=== PATIENT | male | born 1935 | race Caucasian/White ===

== ENCOUNTER → 2024-02-17 10:14 | Outpatient (REF) | payer MEDICARE, SELFPAY ==
[2024-02-17 11:42] LABS: % Basophils 0.5 % (0-2); % Eosinophils 4.8 % (0-6); % Immature Granulocytes 0.7 % (0-0.5); % Lymphocytes 14.7 % (20.5-51.1); % Monocytes 16.6 % (1.7-9.3); % Neutrophils 62.7 % (42.2-75.2); Absolute Eosinophils 0.2 10^3/uL (0-0.7); Absolute Lymphocytes 0.6 10^3/uL (1.2-3.4); Absolute Monocytes 0.7 10^3/uL (0.1-0.6); Absolute Neutrophils 2.7 10^3/uL (1.4-6.5); Hematocrit 37.1 % (39.0-52.0); Hemoglobin 12.7 g/dL (13.0-18.0); Mean Corp Hgb Conc. 34.2 g/dL (33.0-37.0); Mean Corpuscular Hgb 32.6 pg (27.0-31.0); Mean Corpuscular Volume 95.4 fL (80.0-94.0); Mean Platelet Volume 10.5 fL (7.4-10.4); Nucleated Red Blood Cells % 0 % (-); Platelet Count 297 10^3/uL (130-400); Red Blood Cell Count 3.89 10^6/uL (4.70-6.10); Red Cell Dist. Width 13.4 % (11.5-14.5); White Blood Cell Count 4.3 10^3/uL (4.8-10.8)
[2024-02-17 11:44] LABS: ALT (SGPT) 16 U/L (0-50); AST (SGOT) 22 U/L (17-59); Albumin 3.6 g/dl (3.5-5.0); Alkaline Phosphatase 72 U/L (38-126); Blood Urea Nitrogen 9 mg/dl (9-20); Carbon Dioxide 28 mmol/L (22-30); Chloride 97 mmol/L (98-107); Glucose 92 mg/dl (70-99); Potassium 4.7 mmol/L (3.5-5.1); Sodium 131 mmol/L (135-145); Total Bilirubin 0.8 mg/dl (0.2-1.3); Total Protein 5.8 g/dl (6.3-8.2); eGFR > 60.00
[2024-02-18 22:07] LABS: ANA, IgG Reflex to HEp-2 Detected (None Detected)
[2024-02-19 14:24] LABS: ANA, HEp-2, IgG <1:80 (<1:80)
== END ==
LOC: OLABPATH 10:14
PROVIDERS: ATTENDING PHYSICIAN Internal Medicine
DX: D64.9 Anemia, unspecified (principal); M32.9 Systemic lupus erythematosus, unspecified
CPT/HCPCS: 36415; 80053; 85025; 86038; 86039

== ENCOUNTER → 2024-02-23 15:00 | Outpatient (REF) | payer MEDICARE, SELFPAY ==
[2024-02-26 01:49] LABS: ds-DNA Ab, IgG Reflex To Titer 6 IU (0-24)
== END ==
LOC: OLABPATH 15:00
PROVIDERS: ATTENDING PHYSICIAN Internal Medicine
DX: M32.9 Systemic lupus erythematosus, unspecified (principal)
CPT/HCPCS: 36415; 86225

== ENCOUNTER 2024-05-02 09:41 | Emergency (ER) | payer BC, MEDICARE, SELFPAY ==
[2024-05-02 09:46] VITALS: BP 154/91
[2024-05-02 09:53] VITALS: BP 154/91
[2024-05-02 10:00] VITALS: BP 138/79
--- NOTE | 2024-05-02 10:05 | ED.GENMED ---
History of Present Illness
General
Chief Complaint: Abdominal Pain
Time Seen by Provider: 05/02/24 09:56
History of Present Illness
History of Present Illness:
88-year-old male presents to emergency department for evaluation of periumbilical pain since this morning. He has known ventral hernias and is concerned that hernia is the complication. He also has not had a bowel movement in several days. Denies
any fevers or chills. He is uncertain if he has passed flatus.
Review of Systems
Review of Systems
Allergies reviewed?: Yes
All Other Systems: ROS reviewed and negative except as documented in HPI and ROS
Phy Exam
Physical Exam
Physical Exam:
GEN: Well appearing, NAD, WDWN
HEENT: Oral mucosa moist, no scleral icterus
Cardiac: Regular rate
Lung: No respiratory distress, no tachypnea
Abdomen: Protuberant, soft ventral hernia easily reducible, mild tenderness to the left lower quadrant
MSK: No gross deformity or injuries
Skin: Good color, no pallor or jaundice, no rashes
Neuro: AO x3, moves all extremities freely
Psych: Calm, cooperative
Course
Orders/Labs/Results
Orders:
Orders
05/02/24 10:04
CT Abd/Pel (IV only)-[facility] only Urgent
Comment:
Reason For Exam: periumbilical pain
05/02/24 10:21
Complete Blood Count/With Diff Urgent
05/02/24 11:05
Comprehensive Metabolic Panel Urgent
05/02/24 13:05
Polyethylene Glycol Powder [Miralax] 17 grams PO NOW STA
Abnormal Lab Results
05/02/24 05/02/24
10:21 11:05
WBC 3.9 L 10^3/uL
(4.8-10.8)
RBC 3.93 L 10^6/uL
(4.70-6.10)
Hct 37.5 L %
(39.0-52.0)
MCV 95.4 H fL
(80.0-94.0)
MCH 33.6 H pg
(27.0-31.0)
MPV 10.5 H fL
(7.4-10.4)
Absolute Lymphs (auto) 0.6 L 10^3/uL
(1.2-3.4)
Lymphocytes % 16.1 L %
(20.5-51.1)
Monocytes % 11.7 H %
(1.7-9.3)
Sodium 132 L mmol/L
(135-145)
Total Protein 5.6 L g/dl
(6.3-8.2)
05/02/24 10:21
05/02/24 11:05
Vital Signs
Initial and Last Documented VS:
Initial Vital Signs
BP
154/91
05/02/24 09:46
Last Documented Vital Signs
Temp Pulse Resp BP Pulse Ox
97.9 F 71 14 150/84 97
05/02/24 09:53 05/02/24 11:00 05/02/24 11:00 05/02/24 11:00 05/02/24 11:00
MDM/Problems Addressed
MDM/Problems Addressed:
CT shows no acute pathology. No evidence for incarcerated ventral hernia. Recommend MiraLAX for constipation
*Critical Care Note
Total Time (30-74mins, 75-104mins- exclusive of procedures): Not Applicable
ED Attending Note
-
Portions of this chart may have been created with voice recognition software.� Occasional wrong word or��sound alike� substitutions may have occurred due to the inherent limitations of voice recognition software.
Discharge Plan
Departure
Patient Disposition: Home (Routine Discharge)
Date of Disposition: 05/02/24
Time of Disposition: 13:05
Patient with high blood pressure during this ER visit?: No
Discharge Problem:
Constipation
Instructions: Constipation, Adult (DC)
Prescriptions:
No Action
amlodipine 5 mg tablet
5 mg PO DAILY
cyanocobalamin (vitamin B-12) 1,000 mcg Tablet Extended Release
1,000 mcg PO DAILY
sennosides [senna] 8.6 mg tablet
8.6 mg PO BID
mirtazapine 30 mg tablet
30 mg PO HS
hydroxychloroquine [Plaquenil] 200 mg tablet
200 mg PO DAILY
alfuzosin 10 mg tablet extended release 24 hr
10 mg PO DAILY@1700
escitalopram oxalate 20 mg tablet
20 mg PO DAILY
cyclobenzaprine 5 mg tablet
5 mg PO HS
melatonin 3 mg Tablet
6 mg PO HS
acetaminophen [Tylenol Ex Str Rapid Release] 500 mg Tablet
500 mg PO Q8H
potassium chloride 20 mEq tablet,ER particles/crystals
20 meq PO DAILY
lorazepam 0.5 mg tablet
0.5 mg PO Q12H
Rx Instructions:
05/02/24: filled #60 tablets/30 day supply on 04/04/24 at [facility]
cholecalciferol (vitamin D3) [Vitamin D3] 50 mcg (2,000 unit) Capsule
2,000 unit PO DAILY
loperamide 2 mg capsule
2 mg PO PRN PRN (Reason: loose BMs)
Rx Instructions:
2 caps after 1st episode of diarrhea then 1 cap as needed. Max bernal 16mg/24 hrs
acetaminophen 325 mg Tablet
650 mg PO Q4H PRN (Reason: mild pain. NTE 3000mg/day)
Referrals:
Rod Seaman DO [Family Provider] -
Activity Restrictions/Additional Instructions:
Please give Avtar 17gm Miralax once daily until consistent bowel movements are achieved
Interventions
Interventions:
*Risk Screen - Suicide Last Done: 05/02/24 09:53
*General Assessment Last Done: 05/02/24 09:53
*Neglect/Abuse Screening Last Done: 05/02/24 09:53
*Nursing Disposition Last Done: 05/02/24 13:46
TQ-Ijagoc-[id number] Assessment Last Done: 05/02/24 11:06
Discharge Date and Time
Discharge Date/Time: 05/02/24 13:46
Print Language: [id number]
[2024-05-02 10:29] LABS: % Basophils 0.5 % (0-2); % Eosinophils 1.5 % (0-6); % Immature Granulocytes 0.5 % (0-0.5); % Lymphocytes 16.1 % (20.5-51.1); % Monocytes 11.7 % (1.7-9.3); % Neutrophils 69.7 % (42.2-75.2); Absolute Eosinophils 0.1 10^3/uL (0-0.7); Absolute Lymphocytes 0.6 10^3/uL (1.2-3.4); Absolute Monocytes 0.5 10^3/uL (0.1-0.6); Absolute Neutrophils 2.7 10^3/uL (1.4-6.5); Hematocrit 37.5 % (39.0-52.0); Hemoglobin 13.2 g/dL (13.0-18.0); Mean Corp Hgb Conc. 35.2 g/dL (33.0-37.0); Mean Corpuscular Hgb 33.6 pg (27.0-31.0); Mean Corpuscular Volume 95.4 fL (80.0-94.0); Mean Platelet Volume 10.5 fL (7.4-10.4); Nucleated Red Blood Cells % 0 % (-); Platelet Count 260 10^3/uL (130-400); Red Blood Cell Count 3.93 10^6/uL (4.70-6.10); Red Cell Dist. Width 13.8 % (11.5-14.5); White Blood Cell Count 3.9 10^3/uL (4.8-10.8)
[2024-05-02 11:00] VITALS: BP 150/84
[2024-05-02 11:06] VITALS: BMI 24.3
[2024-05-02 11:33] LABS: ALT (SGPT) 25 U/L (0-50); AST (SGOT) 23 U/L (17-59); Albumin 3.6 g/dl (3.5-5.0); Alkaline Phosphatase 59 U/L (38-126); Blood Urea Nitrogen 10 mg/dl (9-20); Calcium 8.8 mg/dl (8.4-10.2); Carbon Dioxide 27 mmol/L (22-30); Chloride 98 mmol/L (98-107); Estimated Creatinine Clearance 65 ml/min; Glucose 80 mg/dl (70-99); Potassium 4.7 mmol/L (3.5-5.1); Sodium 132 mmol/L (135-145); Total Bilirubin 0.5 mg/dl (0.2-1.3); Total Protein 5.6 g/dl (6.3-8.2); eGFR > 60.00
[2024-05-02] MEDS: MIRALAX 17 GRAMS PO (13:16)
== END 2024-05-02 13:46 | disposition home or self-care (01) ==
LOC: EMR 09:41
PROVIDERS: Physician Assistant; EMERGENCY PHYSICIAN Emergency Medicine; FAMILY PHYSICIAN Internal Medicine
DX: K59.00 Constipation, unspecified (principal); K43.9 Ventral hernia without obstruction or gangrene
CPT/HCPCS: 99284; 74177; 80053; 85025; Q9967